=== PATIENT | male | born 1995 | race Two or more races ===

== ENCOUNTER 2022-09-05 12:40 | Inpatient (IN) | payer BC ==
--- NOTE | 2022-09-05 13:54 | ED ---
Psych HPI - General Source: patient, RN notes reviewed Mode of arrival: ambulatory Limitations: no limitations <Erik Vaughn - Last Filed: 09/05/22 13:53> - History of Present Illness MD Complaint: other -: days(s) Associated Psychiatric Symptoms: delusions Quality: getting worse Improves With: none Worsens With: none <Chris Doan - Last Filed: 09/10/22 06:12> - General Chief Complaint: Psychiatric Symptoms Stated Complaint: mental health Time Seen by Provider: 09/05/22 13:53 - History of Present Illness Initial Comments: 27-year-old male presents emergency Department with police for evaluation of mental health. Patient states she's had increasing depression, suicidal ideation. Patient denies any homicidal ideation. (Erik Vaughn) This patient is 27-year-old man brought by law enforcement to have psychiatric evaluation. The patient appears to be making paranoid delusional statements. He did reportedly discharged forearm when police came to the home (Chris Doan) - Related Data Home Medications Medication Instructions Recorded Confirmed No Known Home Medications 09/05/22 09/05/22 Allergies Allergy/AdvReac Type Severity Reaction Status Date / Time No Known Allergies Allergy Verified 09/05/22 18:37 Review of Systems ROS Other: All systems not noted in ROS Statement are negative. <Erik Vaughn - Last Filed: 09/05/22 13:53> ROS Other: All systems not noted in ROS Statement are negative. Constitutional: Denies: fever Respiratory: Denies: cough, dyspnea Cardiovascular: Denies: chest pain, palpitations Gastrointestinal: Denies: abdominal pain, vomiting, diarrhea Genitourinary: Denies: dysuria, hematuria Musculoskeletal: Denies: back pain Neurological: Denies: headache, weakness Psychiatric: Reports: anxiety, other (Delusions). Denies: depression, homicidal thoughts, suicidal thoughts <Chris Doan - Last Filed: 09/10/22 06:12> ROS Statement: Those systems with pertinent positive or pertinent negative responses have been documented in the HPI. Past Medical History Past Medical History: No Reported History History of Any Multi-Drug Resistant Organisms: None Reported Past Surgical History: No Surgical Hx Reported Past Psychological History: No Psychological Hx Reported Smoking Status: Current every day smoker Past Alcohol Use History: None Reported Past Drug Use History: Marijuana <Erik Vaughn - Last Filed: 09/05/22 13:53> - Past Family History Father Family Medical History: Coronary Artery Disease (CAD) <Chris Doan - Last Filed: 09/10/22 06:12> General Exam Limitations: no limitations <Erik Vaughn - Last Filed: 09/05/22 13:53> Limitations: no limitations General appearance: alert, in no apparent distress Head exam: Present: atraumatic, normocephalic Eye exam: Present: normal appearance. Absent: scleral icterus, conjunctival injection Respiratory exam: Present: normal lung sounds bilaterally. Absent: respiratory distress, wheezes, rales, rhonchi, stridor Cardiovascular Exam: Present: regular rate, normal rhythm, normal heart sounds. Absent: systolic murmur, diastolic murmur, rubs, gallop GI/Abdominal exam: Present: soft. Absent: distended, tenderness, guarding, rebound Extremities exam: Present: normal inspection, normal capillary refill Back exam: Present: normal inspection Neurological exam: Present: alert, oriented X3. Absent: motor sensory deficit Psychiatric exam: Present: anxious, manic. Absent: flat affect, homicidal ideation, suicidal ideation Skin exam: Present: warm, dry, intact, normal color. Absent: rash <Chris Doan - Last Filed: 09/10/22 06:12> - General Exam Comments Initial Comments: Visual Physical Exam Vital signs reviewed General: Well-appearing, nontoxic, no acute distress. Head: Normocephalic, atraumatic Eyes: PERRLA, EOMI ENT: Airway patent Chest: Nonlabored breathing Skin: No visual rash, normal skin tone Neuro: Alert and oriented 3 Musculoskeletal: No gross abnormalities (Erik Vaughn) Course Vital Signs 09/05/22 13:47 Temperature 98.1 F Pulse Rate 55 L Respiratory 20 Rate Blood Pressure 141/88 O2 Sat by Pulse 99 Oximetry Medical Decision Making - Lab Data Result diagrams: 09/06/22 08:06 09/06/22 08:06 <Chris Doan - Last Filed: 09/10/22 06:12> - Medical Decision Making This patient is 27-year-old man brought to have psychiatric evaluation after he was behaving erratically and making delusional statements as well as reportedly firing a warning shot from a hand gun. The patient is seen by EPS and they will admit him for further treatment Was pt. sent in by a medical professional or institution ([facility], [facility], urgent care, hospital, or usp...) When possible be specific @ -Brought by police to have evaluation Did you speak to anyone other than the patient for history (EMS, parent, family, police, friend...)? What history was obtained from this source @ -[Police Did you review nursing and triage notes (agree or disagree)? Why? @ -[I reviewed and agree with nursing and triage notes] Were old charts reviewed (outside hosp., previous admission, EMS record, old EKG, old radiological studies, urgent care reports/EKG's, usp records)? Report findings @ -[No old charts were reviewed] Differential Diagnosis (chest pain, altered mental status, abdominal pain women, abdominal pain men, vaginal bleeding, weakness, fever, dyspnea, syncope, headache, dizziness, GI bleed, back pain, seizure, CVA, palpatations, mental health, musculoskeletal)? @ -[Differential Mental Health Depression, anxiety, bipolar, psychosis, schizophrenia, borderline personality, situational depression, adjustment disorder, behavioral disorder, brain tumor, malingering, substance abuse, encephalopathy, medication reaction, dementia, hypothyroidism, degenerative neurologic disorder, lupus.... This is not meant to be all-inclusive list EKG interpreted by me (3pts min.). @ -[ X-rays interpreted by me (1pt min.). @ -[None done] CT interpreted by me (1pt min.). @ -[None done] U/S interpreted by me (1pt. min.). @ -[None done] What testing was considered but not performed or refused? (CT, X-rays, U/S, labs)? Why? @ -[None] What meds were considered but not given or refused? Why? @ -[None] Did you discuss the management of the patient with other professionals (professionals i.e. [facility], [facility], lab, RT, psych nurse, director of social work, assisted sales representative, teacher, chief green officer, caser in)? Give summary @ -[EPS personnel Was smoking cessation discussed for >3mins.? @ -[No] Was critical care preformed (if so, how long)? @ -[No] Were there social determinants of health that impacted care today? How? (Homelessness, low income, unemployed, alcoholism, drug addiction, transp ortation, low edu. Level, literacy, decrease access to med. care, halfway, rehab)? @ -[No] Was there de-escalation of care discussed even if they declined (Discuss DNR or withdrawal of care, Hospice)? DNR status @ -[No] What co-morbidities impacted this encounter? (DM, HTN, Smoking, COPD, CAD, Cancer, CVA, ARF, Chemo, Hep., AIDS, mental health diagnosis, sleep apnea, morbid obesity)? @ -[None] Was patient admitted / discharged? Hospital course, mention meds given and route, prescriptions, significant lab abnormalities, going to OR and other pertinent info. @ -[Admitted Undiagnosed new problem with uncertain prognosis? @ -[No] Drug Therapy requiring intensive monitoring for toxicity (Heparin, Nitro, Insul in, Cardizem)? @ -[No] Were any procedures done? @ -[No] Diagnosis/symptom? @ -[Acute psychosis Acute, or Chronic, or Acute on Chronic? @ -[default] Uncomplicated (without systemic symptoms) or Complicated (systemic symptoms)? @ -[Uncomplicated Side effects of treatment? @ -[No] Exacerbation, Progression, or Severe Exacerbation? @ -[No] Poses a threat to life or bodily function? How? (Chest pain, [place], ME, pneumonia, PE, COPD, DKA, ARF, appy, cholecystitis, CVA, Diverticulitis, Homicidal, Suicidal, threat to staff... and all critical care pts) @ -[No] (Chris Doan) - Lab Data Lab Results 09/05/22 Range/Units 18:33 Coronavirus (PCR) Not Detected (Not Detectd) Disposition <Erik Vaughn - Last Filed: 09/05/22 13:53> <Chris Doan - Last Filed: 09/10/22 06:12> Clinical Impression: Acute psychosis Disposition: TRANSFER TO PSYCH HOSP/UNIT Condition: Fair
[2022-09-05] MEDS ORDERED: ACETAMINOPHEN TAB 325 MG TAB PO PRN (19:15)
[2022-09-05] MEDS ORDERED: MAGNESIUM HYDROXIDE 2,400 MG/10 ML CUP PO PRN (19:15)
[2022-09-05] MEDS ORDERED: MAG HYDROX/AL HYDROX/SIMETH 30 ML CUP PO PRN (19:15)
[2022-09-05] MEDS ORDERED: LORazepam 1 MG TAB PO PRN (19:17)
[2022-09-05] MEDS ORDERED: LORazepam 2 MG/ML INJ IM PRN (19:17)
[2022-09-05] MEDS ORDERED: HALOPERIDOL LACTATE 5 MG/ML 1 ML VIAL IM PRN (19:17)
[2022-09-05] MEDS ORDERED: haloperidoL 5 MG TAB PO PRN (19:17)
--- NOTE | 2022-09-06 01:52 | P.CONS ---
History of Present Illness - Reason for Consult Consult date: 09/06/22 - History of Present Illness Patient is a 27-year-old male with known PMH who was brought to the emergency room under police custody for psychiatric evaluation. The patient was admitted to the mental health unit where he was seen and evaluated. Patient states that he had recently been discriminated against at his work and he states that "the people in power want to take me out). He also believes there is a large conspiracy against him to stop him from seeking damages for racial discrimination. The patient denied any active complaints at the time of interview. He admitted to smoking half pack of cigarettes daily and recreational marijuana use. He denied experiencing chest discomfort or shortness of breath, cough, nausea, vomiting, abdominal pain, diarrhea. Review of systems: Pertinent positives and negatives as discussed in HPI, a complete review of systems was performed and all other systems are negative. Physical examination: Vital signs reviewed General: non toxic, no distress, appears at stated age, normal weight Derm: no unusual rashes/lesions, warm Head: atraumatic, normocephalic, symmetric Eyes: EOMI, no lid lag, anicteric sclera, pupils equal round reactive to light ENT: Nose and ears atraumatic Neck: No cervical lymphadenopathy, trachea midline, supple Mouth: no lip lesion, mucus membranes moist Cardiovascular: S1S2 reg, no murmur, positive dorsalis pedis pulse bilateral, no edema Lungs: CTA bilateral, no rhonchi, no rales, no accessory muscle use Abdominal: soft, nontender to palpation, no guarding Ext: muscle strength 5 out of 5 in all 4 extremities grossly, no gross muscle atrophy, no contractures, Neuro: CN II-XI grossly intact, no gross focal neuro deficits Psych: Alert, oriented, appropriate affect Assessment: Marijuana, tobacco abuse Psychosis Imaging: None performed Data Review: Vital signs upon presentation to the emergency room where BP 141/88, pulse 65, temp 98 and 1F, respiratory rate 20, SpO2 99% on room air. Plan: Strongly advised on importance of cessation of marijuana and tobacco use Defer management of psychosis to primary psychiatry service Past Medical History Past Medical History: No Reported History History of Any Multi-Drug Resistant Organisms: None Reported Past Surgical History: No Surgical Hx Reported Past Psychological History: No Psychological Hx Reported Smoking Status: Current every day smoker Past Alcohol Use History: None Reported Past Drug Use History: Marijuana - Past Family History Father Family Medical History: Coronary Artery Disease (CAD) Medications and Allergies Home Medications Medication Instructions Recorded Confirmed Type No Known Home Medications 09/05/22 09/05/22 History Allergies Allergy/AdvReac Type Severity Reaction Status Date / Time No Known Allergies Allergy Verified 09/05/22 18:37 Physical Exam Vitals: Vital Signs Temp Pulse Pulse Resp BP BP Pulse Ox 09/05/22 21:55 97.1 F L 50 L 16 122/61 98 09/05/22 13:47 98.1 F 55 L 20 141/88 99 Intake and Output 09/05/22 09/05/22 09/06/22 14:59 22:59 06:59 Other: Weight 80.739 kg 77.9 kg
[2022-09-06 08:50] LABS: ALT 34 U/L (4-49); AST 26 U/L (17-59); African American GFR (CKD) >90 (>60 ml/min/1.73 sqM); Albumin 4.8 g/dL (3.5-5.0); Alkaline Phosphatase 73 U/L (38-126); Anion Gap 15 mmol/L; Blood Urea Nitrogen 16 mg/dL (9-20); Calcium 9.6 mg/dL (8.4-10.2); Carbon Dioxide 23 mmol/L (22-30); Chloride 102 mmol/L (98-107); Glucose 109 mg/dL (74-99); Non-African American GFR(CKD) >90 (>60 ml/min/1.73 sqM); Sodium 140 mmol/L (137-145); Total Bilirubin 1.2 mg/dL (0.2-1.3)
[2022-09-06 09:00] LABS: Basophils % (A) 0 %; Eosinophils # (A) 0.1 k/uL (0-0.7); Eosinophils % (A) 1 %; HCT 52.8 % (39.0-53.0); HGB 17.4 gm/dL (13.0-17.5); Lymphocytes # (A) 1.6 k/uL (1.0-4.8); Lymphocytes % (A) 17 %; MCH 29.7 pg (25.0-35.0); MCV 89.9 fL (80.0-100.0); Mean Platelet Volume 6.3; Monocytes # (A) 0.5 k/uL (0-1.0); Monocytes % (A) 5 %; Neutrophils # (A) 6.8 k/uL (1.3-7.7); Neutrophils % (A) 75 %; Platelet Count 273 k/uL (150-450); RBC 5.87 m/uL (4.30-5.90); RDW 13.3 % (11.5-15.5); WBC 9.1 k/uL (3.8-10.6)
[2022-09-06] MEDS: NICOTINE 14MG/24HR PATCH TRANSDERM SCH (13:12)
[2022-09-06] MEDS: ZIPRASIDONE 20 MG CAP PO SCH ×2 (13:13→18:09)
--- NOTE | 2022-09-06 13:25 | P.HP ---
Psychiatric H&P - . H&P Date: 09/06/22 History & Physical: Allergies Allergy/AdvReac Type Severity Reaction Status Date / Time No Known Allergies Allergy Verified 09/05/22 18:37 Vital Signs Temp 97.4 F L 09/06/22 06:25 Pulse 99 09/06/22 06:25 Resp 16 09/06/22 06:25 BP 147/86 09/06/22 06:25 Pulse Ox 98 09/05/22 21:55 FiO2 Intake & Output 09/05/22 09/06/22 09/06/22 18:59 06:59 18:59 Weight 80.739 kg 77.9 kg Laboratory Last Values WBC 9.1 k/uL (3.8-10.6) 09/06/22 08:06 RBC 5.87 m/uL (4.30-5.90) 09/06/22 08:06 Hgb 17.4 gm/dL (13.0-17.5) 09/06/22 08:06 Hct 52.8 % (39.0-53.0) 09/06/22 08:06 MCV 89.9 fL (80.0-100.0) 09/06/22 08:06 MCH 29.7 pg (25.0-35.0) 09/06/22 08:06 MCHC 33.0 g/dL (31.0-37.0) 09/06/22 08:06 RDW 13.3 % (11.5-15.5) 09/06/22 08:06 Plt Count 273 k/uL (150-450) 09/06/22 08:06 MPV 6.3 09/06/22 08:06 Neutrophils % 75 % 09/06/22 08:06 Lymphocytes % 17 % 09/06/22 08:06 Monocytes % 5 % 09/06/22 08:06 Eosinophils % 1 % 09/06/22 08:06 Basophils % 0 % 09/06/22 08:06 Neutrophils # 6.8 k/uL (1.3-7.7) 09/06/22 08:06 Lymphocytes # 1.6 k/uL (1.0-4.8) 09/06/22 08:06 Monocytes # 0.5 k/uL (0-1.0) 09/06/22 08:06 Eosinophils # 0.1 k/uL (0-0.7) 09/06/22 08:06 Basophils # 0.0 k/uL (0-0.2) 09/06/22 08:06 Sodium 140 mmol/L (137-145) 09/06/22 08:06 Potassium 4.0 mmol/L (3.5-5.1) 09/06/22 08:06 Chloride 102 mmol/L (98-107) 09/06/22 08:06 Carbon Dioxide 23 mmol/L (22-30) 09/06/22 08:06 Anion Gap 15 mmol/L 09/06/22 08:06 BUN 16 mg/dL (9-20) 09/06/22 08:06 Creatinine 0.96 mg/dL (0.66-1.25) 09/06/22 08:06 Est GFR (CKD-EPI)AfAm >90 (>60 ml/min/1.73 sqM) 09/06/22 08:06 Est GFR (CKD-EPI)NonAf >90 (>60 ml/min/1.73 sqM) 09/06/22 08:06 Glucose 109 mg/dL (74-99) H 09/06/22 08:[address] Glu mg/dL 109 09/06/22 08:06 Hemoglobin A1c 5.4 % (0.0-6.0) 09/06/22 08:06 Calcium 9.6 mg/dL (8.4-10.2) 09/06/22 08:06 Total Bilirubin 1.2 mg/dL (0.2-1.3) 09/06/22 08:06 AST 26 U/L (17-59) 09/06/22 08:06 ALT 34 U/L (4-49) 09/06/22 08:06 Alkaline Phosphatase 73 U/L (38-126) 09/06/22 08:06 Total Protein 8.0 g/dL (6.3-8.2) 09/06/22 08:06 Albumin 4.8 g/dL (3.5-5.0) 09/06/22 08:06 TSH 1.740 mIU/L (0.465-4.680) 09/06/22 08:06 Coronavirus (PCR) Not Detected (Not Detectd) 09/05/22 18:33 09/06/22 12:43 IDENTIFYING DATA: Patient is a 27 yo [place] male, who currently lives with his parents in a house he is single, has no kids. He works at the local factory. HPI: Patient presented to the hospital yesterday was brought in by the police on a petition. According to the petition, patient shot at police as he was believing that his coworkers were coming after him to kill him. He was endorsing paranoia. Patient was admitted involuntarily to the mental health unit. Patient was seen today wandering the hallways and agreeable to speak to travel writer in the office. Patient appeared to have fairly poor insight and poor reality testing. He also was demonstrating poor judgment. He was minimizing his need for hospitalization and also mental health treatment. He states he has been feeling "mainly depressed" and spoke about "seeing my father getting weaker" and states that he has to take care of his family. He claims that his father has cancer however he does not know what kind. He was fairly concrete in his answers and fairly vague. He was also fairly evasive about the circumstances that led him to go to the long-term and why he shot at police. He states that he is feeling depressed and isn't anxious at this time, claims that his sleep has been on and off, appetite has been improving. He was thankful for being able to see his friend on the unit. Patient denies any suicidal or homicidal ideations intent or plan. At this time patient denies any auditory or visual hallucinations. Patient denies any flight of ideas racing thoughts and increased in goal directed behavior. Patient admits to using marijuana occasionally and nicotine products. PAST PSYCHIATRIC HISTORY: Patient states that he does not have any psychiatric illnesses. Patient denies being on any psychiatric medications. Patient denies any previous psychiatric hospitalizations. Patient denies any psychiatric outpatient follow-up. Patient denies any history of suicide attempts in the past. Past Medical History: No Reported History History of Any Multi-Drug Resistant Organisms: None Reported Past Surgical History: No Surgical Hx Reported Past Psychological History: No Psychological Hx Reported Smoking Status: Current every day smoker Past Alcohol Use History: None Reported Past Drug Use History: Marijuana ALLERGIES: as per EMR CHEMICAL DEPENDENCY HISTORY: as per HPI FAMILY PSYCHIATRIC/SUBSTANCE USE HISTORY: denies SOCIAL HISTORY: Patient was born and raised in [place] and then moved to [facility]. He states that he completed some college and did high school. He states that he never had any legal history prior to going to the long-term. He is currently single has no kids. He lives with his parents in a house. He works at the local factory. MENTAL STATUS EXAM: General Appearance: Patient appears to be short in stature, longer hair, stated age is alert, directable, and attempts to cooperate. Vague at times. Patient appears to have fair hygiene and grooming. Behavior: Patient is seated without any agitated behavior. Attempts to cooperate. Evasive. Speech: Patient's speech is fluent and nonpressured. Mood/Affect: Patient reports their mood is depressed, affect is congruent and c onstricted. Suicidality/Homicidality: Patient denies having any homicidal ideation intent or plan. Denies any suicidal ideations intent or plan Perceptions: Patient denies any visual hallucinations and denies any auditory hallucinations Though content/process: thought process is linear and goal-directed. Endorsing delusions, very poor insight. [place]. Memory and concentration: AOX3, grossly intact for the purposes of this session. Can spell "WORLD" backwards Judgment and insight: poor STRENGTHS/WEAKNESSES: strength is that patient is resilient. Weakness is that patient has poor judgment and is impulsive INTELLECT: average IMPRESSIONS: Psychosis unspecified, rule out cannabis-induced psychosis Cannabis use disorder Nicotine dependence PLAN: -Patient is admitted under involuntary status to MHU for stabilization of psychiatric symptoms and safety. Patient has signed medication consent and is placed in patient's chart. A second certification was completed and along with petition will be filed for court. -Medications : Will start patient on Geodon 20 mg twice a day for psychosis/mood stabilization, trazodone 100 mg daily at bedtime when necessary for insomnia. Ordered EKG. -Ativan and Haldol PRN for agitation/aggression -Patient was informed of the risks, benefits and side effects of the medication and patient verbally consented to taking the medications. Patient signed med consent form and was placed in chart. -Internal Medicine consult to perform medical evaluation and physical. -NRT - nicotine patch -SW on board for discharge planning. Encourage patient to participate in groups to work on coping skills. Will await deferral and court date. 09/06/22 13:19
[2022-09-06] MEDS: traZODone HCL 100 MG TAB PO PRN (21:15)
[2022-09-07] MEDS: ZIPRASIDONE 20 MG CAP PO SCH ×2 (08:19→17:12)
[2022-09-07] MEDS: NICOTINE 14MG/24HR PATCH TRANSDERM SCH (08:20)
--- NOTE | 2022-09-07 11:50 | P.PN ---
Progress Note - Text Progress Note Date: 09/07/22 Interval History: Patient was seen [wandering the hallways] and was directable and agreeable to speak with staff writer in the office. Patient claims that he is feeling "the same" as yesterday and believes that the medications have not been helping him yet. She states that he is agreeable to continue on with the medications. He continues to demonstrate fairly poor insight into his condition and need for treatment. He continues to demonstrate fairly poor reality testing about his legal sitation and was requesting to go home so he can "take care of my family". He states that he learned that his father was admitted to the hospital yesterday due to his "liver cancer" and has been worried about him. He claims that he is trying to go to groups and participate. States that he slept fairly last night with the trazodone. We also spoke about his medications and also the marijuana that he was using and how it is likely connected to patient's acute psychotic symptoms and patient was fairly defensive and again showed minimal insight as to it possibly being the culprit for him being admitted. At this time patient denies any suicidal or homical ideations, intent or plan. Patient denies any auditory, visual hallucinations and denies any paranoia or delusions. Patient denies any side effects from the medications and has been compliant with meds. Mental Status Exam: General Appearance: Patient appears to be short in stature, longer hair, stated age is alert, directable, and attempts to cooperate. Vague at times. Patient appears to have fair hygiene and grooming. Behavior: Patient is seated without any agitated behavior. Attempts to cooperate. Evasive, improving mildly Speech: Patient's speech is fluent and nonpressured. Mood/Affect: Patient reports their mood is "the same", affect is congruent Suicidality/Homicidality: Patient denies having any homicidal ideation intent or plan. Denies any suicidal ideations intent or plan Perceptions: Patient denies any visual hallucinations and denies any auditory hallucinations Though content/process: thought process is linear and goal-directed. Endorsing delusions, poor insight. [place]. Memory and concentration: AOX3, grossly intact for the purposes of this session. Judgment and insight: poor IMPRESSIONS: Psychosis unspecified, rule out cannabis-induced psychosis Cannabis use disorder Nicotine dependence PLAN: -Patient is admitted under involuntary status to MHU for stabilization of psychiatric symptoms and safety. Patient has signed medication consent and is placed in patient's chart. A second certification was completed and along with petition will be filed for court. -Medications : Geodon 20 mg twice a day for psychosis/mood stabilization this can be increased over the weekend if needed, trazodone 100 mg daily at bedtime when necessary for insomnia. reviewed ecg -Ativan and Haldol PRN for agitation/aggression -NRT - nicotine patch -SW on board for discharge planning. Encourage patient to participate in groups to work on coping skills. Will await deferral and court date. patient is a usp hold
[2022-09-07] MEDS: traZODone HCL 100 MG TAB PO PRN (21:54)
[2022-09-08] MEDS: ZIPRASIDONE 20 MG CAP PO SCH ×2 (08:38→17:51)
[2022-09-08] MEDS: NICOTINE 14MG/24HR PATCH TRANSDERM SCH (08:38)
--- NOTE | 2022-09-08 10:30 | P.PN ---
Progress Note - Text Progress Note Date: 09/08/22 Interval History: Patient was seen wandering the hallways and was directable and agreeable to sp maricruz with tag writer in the office. Patient says that he is feeling "good" and says he's attempting to find his stability. He reports attending groups. He states that he is sleeping well with trazodone and denies issues with appetite. He says he likes to eat more meat in his diet. Patient continues to have poor insight into contribution of substance use into his mental health. He says that he is trying to meditate "on peace ". At this time patient denies any suicidal or homicidal ideations, intent or plan. Patient denies any auditory, visual hallucinations and denies any paranoia or delusions. Patient denies any side effects from the medications and has been compliant with meds. He denies dizziness, nausea, palpitations, muscle stiffness or tremors. Mental Status Exam: General Appearance: Patient appears to be short in stature, longer hair, stated age is alert, directable, and attempts to cooperate. Vague at times. Patient appears to have fair hygiene and grooming. Behavior: Patient is seated without any agitated behavior. Attempts to cooperate. Evasive, improving mildly Speech: Patient's speech is fluent and nonpressured. Mood/Affect: Patient reports their mood is "good", affect is congruent Suicidality/Homicidality: Patient denies having any homicidal ideation intent or plan. Denies any suicidal ideation intent or plan Perceptions: Patient denies any visual hallucinations and denies any auditory hallucinations Though content/process: thought process is linear and goal-directed. no delusions. [place]. Memory and concentration: AOX3, grossly intact for the purposes of this session. Judgment and insight: poor IMPRESSIONS: Psychosis unspecified, rule out cannabis-induced psychosis Cannabis use disorder Nicotine dependence PLAN: -Patient is admitted under involuntary status to [facility] for stabilization of psychiatric symptoms and safety. Patient has signed medication consent and is placed in patient's chart. A second certification was completed and along with petition will be filed for court. -Medications : Geodon 20 mg twice a day for psychosis/mood stabilization this can be increased over the weekend if needed, trazodone 100 mg daily at bedtime when necessary for insomnia. QTc on 09/06 was 404 with sinus bradycardia -Ativan and Haldol PRN for agitation/aggression -NRT - nicotine patch -SW on board for discharge planning. Encourage patient to participate in groups to work on coping skills. Will await deferral and court date. patient is a retirement hold
[2022-09-08 20:25] LABS: Amphetamine Screen,Urine Not Detected (NotDetected); Barbiturate Screen,Urine Not Detected (NotDetected); Benzodiazepines Screen,Urine Not Detected (NotDetected); Cocaine Screen,Urine Not Detected (NotDetected); Methadone Screen, Urine Not Detected (NotDetected); Opiate Screen,Urine Not Detected (NotDetected); Oxycodone Screen, Urine Not Detected (NotDetected); Phencyclidine Screen,Urine Not Detected (NotDetected); Tricyclic Antidepressant,Urine Not Detected (NotDetected); Urn Cannabinoid Scrn Detected (NotDetected)
[2022-09-08] MEDS: traZODone HCL 100 MG TAB PO PRN (23:40)
[2022-09-09] MEDS: NICOTINE 14MG/24HR PATCH TRANSDERM SCH (08:05)
[2022-09-09] MEDS: ZIPRASIDONE 20 MG CAP PO SCH ×2 (08:06→17:08)
--- NOTE | 2022-09-09 15:07 | P.PN ---
Progress Note - Text Progress Note Date: 09/09/22 Interval History: Patient was seen wandering the hallways and was directable and agreeable to sp maricruz with blog writer. Patient says that he is feeling "really good". He states that he was trying to stay positive and is trying to handle things with a happier attitude. He reports attending groups. He has been observed to be interacting with others on the unit and states that his been trying to spread positivity to them as well. Patient states that he does not want to use cannabis any longer. 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 He reports sleeping well and eating well. At this time patient denies any suicidal or homicidal ideations, intent or plan. Patient denies any auditory, visual hallucinations and denies any paranoia or delusions. Patient denies any side effects from the medications and has been compliant with meds. He denies dizziness, nausea, palpitations, muscle stiffness or tremors. Mental Status Exam: General Appearance: Patient appears to be short in stature, longer hair, stated age is alert, directable, and attempts to cooperate. Vague at times. Patient appears to have fair hygiene and grooming. Behavior: Patient is seated without any agitated behavior. Attempts to cooperate. Speech: Patient's speech is fluent and nonpressured. Mood/Affect: Patient reports their mood is "really good", affect is congruent Suicidality/Homicidality: Patient denies having any homicidal ideation intent or plan. Denies any suicidal ideation intent or plan Perceptions: Patient denies any visual hallucinations and denies any auditory hallucinations Though content/process: thought process is linear and goal-directed. no delusions. Memory and concentration: AOX3, grossly intact for the purposes of this session. Judgment and insight: poor IMPRESSIONS: Psychosis unspecified, rule out cannabis-induced psychosis Cannabis use disorder Nicotine dependence PLAN: -Patient is admitted under involuntary status to [facility] for stabilization of psychiatric symptoms and safety. Patient has signed medication consent and is placed in patient's chart. A second certification was completed and along with petition will be filed for court. -Medications : Geodon 20 mg twice a day for psychosis/mood stabilization, trazodone 100 mg daily at bedtime when necessary for insomnia. QTc on 09/06 was 404 with sinus bradycardia -Ativan and Haldol PRN for agitation/aggression -NRT - nicotine patch -SW on board for discharge planning. Encourage patient to participate in groups to work on coping skills. Will await deferral and court date. patient is a group home hold
[2022-09-09] MEDS: traZODone HCL 100 MG TAB PO PRN (21:52)
[2022-09-10] MEDS: ZIPRASIDONE 20 MG CAP PO SCH ×2 (08:49→17:56)
[2022-09-10] MEDS: NICOTINE 14MG/24HR PATCH TRANSDERM SCH (08:49)
--- NOTE | 2022-09-10 11:11 | P.PN ---
Progress Note - Text Progress Note Date: 09/10/22 Interval History: Patient was seen [wandering the hallways] and was directable and agreeable to speak with senior grant writer in the office. Patient claims that he is feeling "better" with regards to his mood and claims that his feeling more optimistic. He states that he really did need to be here on the unit. 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 He continues to minimize his legal issues and have limited insight towards them. He has been taking his medications and claims that they have been helping him overall. He was directable cooperative during the interview. He states that he is going to groups and participating. States that he slept fairly last night with the trazodone. At this time patient denies any suicidal or homical ideations, intent or plan. Patient denies any auditory, visual hallucinations and denies any paranoia or delusions. Patient denies any side effects from the medications and has been compliant with meds. Mental Status Exam: General Appearance: Patient appears to be short in stature, longer hair, stated age is alert, directable, and attempts to cooperate. Patient appears to have fair hygiene and grooming. Behavior: Patient is seated without any agitated behavior. Attempts to cooperate, improving mildly Speech: Patient's speech is fluent and nonpressured. Mood/Affect: Patient reports their mood is "better", affect is congruent Suicidality/Homicidality: Patient denies having any homicidal ideation intent or plan. Denies any suicidal ideations intent or plan Perceptions: Patient denies any visual hallucinations and denies any auditory hallucinations Though content/process: thought process is linear and goal-directed. Continues to have poor insight. [place]. Memory and concentration: AOX3, grossly intact for the purposes of this session. Judgment and insight: poor, improving mildly IMPRESSIONS: Psychosis unspecified, rule out cannabis-induced psychosis Cannabis use disorder Nicotine dependence PLAN: -Patient is admitted under involuntary status to [facility] for stabilization of psychiatric symptoms and safety. Patient has signed medication consent and is placed in patient's chart. -Medications : continue with Geodon 20 mg twice a day for psychosis/mood stabilization, trazodone 100 mg daily at bedtime when necessary for insomnia -Ativan and Haldol PRN for agitation/aggression -NRT - nicotine patch -SW on board for discharge planning. Encourage patient to participate in groups to work on coping skills. Will await deferral and court date. patient is a penitentiary hold. possibly discharge tomorrow back to penitentiary if pt defers with his civil rights attorney.
[2022-09-10] MEDS: traZODone HCL 100 MG TAB PO PRN (20:33)
[2022-09-11 06:57] VITALS: RESP 14
[2022-09-11 06:58] VITALS: BP 109/55; PULSE 107; TEMP 98.3
[2022-09-11] MEDS: ZIPRASIDONE 20 MG CAP PO SCH (08:20)
[2022-09-11] MEDS: NICOTINE 14MG/24HR PATCH TRANSDERM SCH (08:22)
--- NOTE | 2022-09-11 11:22 | P.DS ---
Providers Date of admission: 09/05/22 19:14 Expected date of discharge: 09/11/22 Attending physician: Deejay Lobo MD Consults: 09/05/22 19:15 Consult Physician Routine Consulting Provider: Chad Physician Consult Reason/Comments: H&P Do you want consulting provider notified?: Yes Primary care physician: Stated None - Discharge Diagnosis(es) (1) Unspecified psychosis Current Visit: Yes Status: Acute Priority: High (2) Cannabis use disorder Current Visit: Yes Status: Acute Priority: High (3) Nicotine dependence Current Visit: Yes Status: Acute Priority: Low Hospital Course: Admission HPI: Admission note was completed by check writer salesperson "Patient is a 27 yo [place] male, who currently lives with his parents in a house he is single, has no kids. He works at the local factory. Patient presented to the hospital yesterday was brought in by the police on a petition. According to the petition, patient shot at police as he was believing that his coworkers were coming after him to kill him. He was endorsing paranoia. Patient was admitted involuntarily to the [facility] unit. Patient was seen today wandering the hallways and agreeable to speak to check writer salesperson in the office. Patient appeared to have fairly poor insight and poor reality testing. He also was demonstrating poor judgment. He was minimizing his need for hospitalization and also mental health treatment. He states he has been feeling "mainly depressed" and spoke about "seeing my father getting weaker" and states that he has to take care of his family. He claims that his father has cancer however he does not know what kind. He was fairly concrete in his answers and fairly vague. He was also fairly evasive about the circumstances that led him to go to the group home and why he shot at police. He states that he is feeling depressed and isn't anxious at this time, claims that his sleep has been on and off, appetite has been improving. He was thankful for being able to see his friend on the unit. Patient denies any suicidal or homicidal ideations intent or plan. At this time patient denies any auditory or visual hallucinations. Patient denies any flight of ideas racing thoughts and increased in goal directed behavior. Patient admits to using marijuana occasionally and nicotine products." Hospital course: Upon admission to the unit patient was admitted involuntarily on a petition and certificate and a second certificate was completed and faxed with the courts. Patient ended up signing a deferral with the accounting manager cpa and agreeing to treatment. Patient got along well with other patients on the unit and followed unit protocol. Patient was compliant with the medications and denied any side effects throughout hospital course. Patient was started on Geodon 20 mg twice a day for psychosis/mood stabilization, trazodone 100 mg when necessary daily at bedtime for insomnia. Patient spoke of his stressors and engaged in therapy both group and individual. Patient was also seen by medical team for history and physical exam. Throughout the course of the hospitalization patient gradually improved with regards to mood, anxiety, psychosis, paranoia, sleep and returned back to their baseline level of functioning. On the day of discharge patient denied any suicidal or homicidal ideations intent or plan denied any auditory or visual hallucinations. Patient endorsed wanting to live for his health, future and family. The patient denied any access to guns or weapons. Patient denied any paranoia and did not endorse any delusions. Patient does have a significant history of substance abuse and was counseled on abstaining from all substances including alcohol and marijuana. Patient elected to do outpatient substance use treatment program through [facility]. Patient was also counseled on the medications and need for regular compliance and was encouraged to follow-up with their outpatient appointment for mental health and also for primary care. Prior to discharge a family meeting will be arranged by social work manager to answer any questions and ensure safety upon discharge. Mental status exam: General Appearance: Patient appears to be short in stature, stated age is alert, pleasant, and cooperative. Patient is in no acute distress and has improved hygiene and grooming Behavior: Patient is calmly seated without any agitated behavior. Speech: Patient's speech is fluent and nonpressured. Mood/Affect: Patient reports their mood is "better", affect is congruent and euthymic. Suicidality/Homicidality: Patient denies having any suicidal or homicidal ideation intent or plan. Perceptions: Patient denies any auditory or visual hallucinations. Though content/process: There is no evidence of any delusional thought content and thought process is linear and goal-directed. more future oriented Memory and concentration: AOX3, grossly intact for the purposes of this session. Can spell "WORLD" backwards correctly. 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 Patient will remain at chronically elevated risk for harm to self and/or others due to his poor insight/judgment and substance abuse. -Continue medications: Geodon 20 mg twice a day for psychosis/mood stabilization, trazodone 100 mg daily at bedtime when necessary for insomnia. -Patient was counseled on the need for medication compliance and appropriate follow-up at mental health and also primary care for medical issues. Patient verbalized understanding and agreed. -Social work to arrange for and conduct family meeting to ensure safety upon discharge and answer any questions/concerns. Social work also to arrange for patients follow up appointments with [facility] for psychiatric care along with follow up with primary care provider. -Patient counseled on abstaining from recreational drugs and marijuana and alcohol. Was informed/educated on the adverse effects on their physical and mental health. Patient verbally agreed and understood. patient claims that he would like to stop using cannabis "cold turkey" and did not need any resources or help with it. -Patient was instructed to return to the hospital or seek immediate medical care if their psychiatric or medical symptoms do worsen or reoccur. Allergies Allergy/AdvReac Type Severity Reaction Status Date / Time No Known Allergies Allergy Verified 09/05/22 18:37 Laboratory Results WBC 9.1 k/uL (3.8-10.6) 09/06/22 08:06 RBC 5.87 m/uL (4.30-5.90) 09/06/22 08:06 Hgb 17.4 gm/dL (13.0-17.5) 09/06/22 08:06 Hct 52.8 % (39.0-53.0) 09/06/22 08:06 MCV 89.9 fL (80.0-100.0) 09/06/22 08:06 MCH 29.7 pg (25.0-35.0) 09/06/22 08:06 MCHC 33.0 g/dL (31.0-37.0) 09/06/22 08:06 RDW 13.3 % (11.5-15.5) 09/06/22 08:06 Plt Count 273 k/uL (150-450) 09/06/22 08:06 MPV 6.3 09/06/22 08:06 Neutrophils % 75 % 09/06/22 08:06 Lymphocytes % 17 % 09/06/22 08:06 Monocytes % 5 % 09/06/22 08:06 Eosinophils % 1 % 09/06/22 08:06 Basophils % 0 % 09/06/22 08:06 Neutrophils # 6.8 k/uL (1.3-7.7) 09/06/22 08:06 Lymphocytes # 1.6 k/uL (1.0-4.8) 09/06/22 08:06 Monocytes # 0.5 k/uL (0-1.0) 09/06/22 08:06 Eosinophils # 0.1 k/uL (0-0.7) 09/06/22 08:06 Basophils # 0.0 k/uL (0-0.2) 09/06/22 08:06 Sodium 140 mmol/L (137-145) 09/06/22 08:06 Potassium 4.0 mmol/L (3.5-5.1) 09/06/22 08:06 Chloride 102 mmol/L (98-107) 09/06/22 08:06 Carbon Dioxide 23 mmol/L (22-30) 09/06/22 08:06 Anion Gap 15 mmol/L 09/06/22 08:06 BUN 16 mg/dL (9-20) 09/06/22 08:06 Creatinine 0.96 mg/dL (0.66-1.25) 09/06/22 08:06 Est GFR (CKD-EPI)AfAm >90 (>60 ml/min/1.73 sqM) 09/06/22 08:06 Est GFR (CKD-EPI)NonAf >90 (>60 ml/min/1.73 sqM) 09/06/22 08:06 Glucose 109 mg/dL (74-99) H 09/06/22 08:[address] Glu mg/dL 109 09/06/22 08:06 Hemoglobin A1c 5.4 % (0.0-6.0) 09/06/22 08:06 Calcium 9.6 mg/dL (8.4-10.2) 09/06/22 08:06 Total Bilirubin 1.2 mg/dL (0.2-1.3) 09/06/22 08:06 AST 26 U/L (17-59) 09/06/22 08:06 ALT 34 U/L (4-49) 09/06/22 08:06 Alkaline Phosphatase 73 U/L (38-126) 09/06/22 08:06 Total Protein 8.0 g/dL (6.3-8.2) 09/06/22 08:06 Albumin 4.8 g/dL (3.5-5.0) 09/06/22 08:06 TSH 1.740 mIU/L (0.465-4.680) 09/06/22 08:06 Urine Opiates Screen Not Detected (NotDetected) 09/08/22 18:33 Ur Oxycodone Screen Not Detected (NotDetected) 09/08/22 18:33 Urine Methadone Screen Not Detected (NotDetected) 09/08/22 18:33 Ur Propoxyphene Screen Not Detected (NotDetected) 09/08/22 18:33 Ur Barbiturates Screen Not Detected (NotDetected) 09/08/22 18:33 U Tricyclic Antidepress Not Detected (NotDetected) 09/08/22 18:33 Ur Phencyclidine Scrn Not Detected (NotDetected) 09/08/22 18:33 Ur Amphetamines Screen Not Detected (NotDetected) 09/08/22 18:33 U Methamphetamines Scrn Not Detected (NotDetected) 09/08/22 18:33 U Benzodiazepines Scrn Not Detected (NotDetected) 09/08/22 18:33 Urine Cocaine Screen Not Detected (NotDetected) 09/08/22 18:33 U Marijuana (THC) Screen Detected (NotDetected) H 09/08/22 18:33 Coronavirus (PCR) Not Detected (Not Detectd) 09/05/22 18:33 Vital Signs Temp 98.3 F 09/11/22 06:57 Pulse 107 H 09/11/22 06:57 Resp 14 09/11/22 06:57 BP 109/55 09/11/22 06:57 Pulse Ox 98 09/10/22 06:02 FiO2 Patient Condition at Discharge: Stable Plan - Discharge Summary New Discharge Prescriptions: New traZODone HCL [Desyrel] 100 mg PO HS PRN 30 Days #30 tab PRN Reason: Insomnia Ziprasidone [Geodon] 20 mg PO AC-BID 30 Days #60 cap Discharge Medication List Ziprasidone [Geodon] 20 mg PO AC-BID 30 Days #60 cap 09/11/22 [Rx] traZODone HCL [Desyrel] 100 mg PO HS PRN 30 Days #30 tab 09/11/22 [Rx] Follow up Appointment(s)/Referral(s): Care, Yes ignacio [Other] - 09/11/22 4:00 pm (intake) None,Stated [Primary Care Provider] - 1-2 days Patient Instructions/Handouts: Psychotic Disorder (DC) Activity/Diet/Wound Care/Special Instructions: Avoid the use of street drugs and alcohol. Take all medications as prescribed. When you are in need of refills on your medications, please contact your medical provider and/or outpatient psychiatrist to have this done. Please go to scheduled outpatient appointments for aftercare treatment. If symptoms return or become worse, call the crisis line at and/or go to the nearest emergency room for evaluation. Discharge Disposition: DC/TRANSFER COURT/LAW
== END 2022-09-11 13:59 | DRG 897 ==
LOC: EC 12:40 → 3MHU 19:14
PROVIDERS: ADMIT Psychiatry & Neurology Psychiatry; ATTEND Psychiatry & Neurology Psychiatry
DX: F12.159 Cannabis abuse with psychotic disorder, unspecified (principal); R45.851 Suicidal ideations; Z71.51 Drug abuse counseling and surveillance of drug abuser; F17.210 Nicotine dependence, cigarettes, uncomplicated; G47.00 Insomnia, unspecified; Z71.89 Other specified counseling; Z79.899 Other long term (current) drug therapy; Z80.0 Family history of malignant neoplasm of digestive organs; Z82.49 Family history of ischemic heart disease and other diseases of the circulatory system
CPT/HCPCS: 80053; 80306; 82075; 83036; 84443; 85025; 87635; 93005; 99285